=== PATIENT | male | born 1965 | race Caucasian/White ===

== ENCOUNTER 2022-05-07 19:04 | Emergency (ER) | payer OTHER, SELFPAY ==
[2022-05-07] VITALS (28 sets, daily range): BP systolic 128–155; BP diastolic 63–91; PULSE 79–88; RESP 16; TEMP 36.8–37.8; O2SAT 92–98; BMI 45.8
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
[2022-05-07 19:19] LABS: Basophils Absolute Auto 0.04 K/uL (0.00-0.30); Basophils Percent Auto 0.4 % (0.0-3.0); Eosinophils Absolute Auto 0.15 K/uL (0.00-0.50); Eosinophils Percent Auto 1.5 % (0.0-7.0); Hematocrit 49.3 % (37.0-53.0); Hemoglobin* 16.6 gm/dL (13.5-17.5); Immature Granulocytes Abs Auto 0.04 K/uL (0.00-0.30); Immature Granulocytes Pct Auto 0.4 %; Lymphocytes Absolute Auto 3.29 K/uL (0.90-2.90); Lymphocytes Percent Auto 33.2 % (20-44); Mean Corpuscular HGB Conc 34 gm/dL (32-36); Mean Corpuscular Hemoglobin 30 pg (26-34); Mean Corpuscular Volume 88 fL (80-100); Monocytes Percent Auto 8.8 % (0.0-11.0); Neutrophils Absolute Auto 5.53 K/uL (1.7-7.0); Neutrophils Percent Auto 55.7 % (42.0-72.0); Platelet Count* 196 K/uL (140-440); RDW Coefficient of Variation % 13.1 % (11.5-15.5); Red Blood Count 5.59 m/uL (4.30-5.90); White Blood Count* 9.92 K/uL (4.50-11.00)
[2022-05-07 19:22] LABS: Slide Review Reflex No
[2022-05-07 19:30] LABS: Albumin* 4.6 g/dL (3.3-5.0); Chloride* 103 mmol/L (96-114); Potassium* 3.6 mmol/L (3.6-5.1); Sodium* 138 mmol/L (135-149)
[2022-05-07 19:32] LABS: Creatinine* 0.7 mg/dL (0.5-1.5); Est. Creatinine Clearance* 100.06; Estimated Glomerular Filt Rate 107 ml/min
[2022-05-07 19:33] LABS: Alanine Aminotransferase* 35 U/L (4-50); Alkaline Phosphatase* 40 U/L (40-150); Aspartate Amino Transferase* 29 U/L (12-35); Bilirubin Total* 0.6 mg/dL (0.1-1.5); Blood Urea Nitrogen* 19 mg/dL (7-30); Calcium* 9.4 mg/dL (8.4-10.6); Carbon Dioxide* 26 mmol/L (20-32); Glucose* 112 mg/dL (60-115); Lipase* 103 U/L (23-300); Total Protein* 7.9 g/dL (6.0-8.3)
[2022-05-07] MEDS: 0.9 % SODIUM CHLORIDE 500 ML 500 ML IV (19:33)
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
[2022-05-07 19:37] LABS: Ethanol* < 0.01 % (0.01-0.03)
[2022-05-07 19:48] LABS: Troponin I* < 0.01 ng/mL (0.01-0.04)
[2022-05-07] MEDS: ACETAMINOPHEN 500 MG TABLET 1000 MG PO (20:18)
[2022-05-07] MEDS: OXYCODONE 5 MG TABLET 10 MG PO (20:19)
[2022-05-07] MEDS: CYCLOBENZAPRINE HCL 10 MG TABLET PO (20:19)
== END 2022-05-07 21:18 | disposition home or self-care (01) ==
PROVIDERS: Emergency Provider Family Medicine
DX: R10.12 Left upper quadrant pain (principal); R07.89 Other chest pain; V43.51XA Car driver injured in collision with sport utility vehicle in traffic accident, initial encounter
CPT/HCPCS: 36415; 71260; 74177; 80053; 82077; 83690; 84484; 85025; 93005; 94761; 99283; 99284; 99291; A0425; A0429; A9270; G0390; J7120; Q9967

== ENCOUNTER 2025-01-17 20:32 | Outpatient (CLI) | payer OTHER, SELFPAY | END 2025-01-17 20:33 | disposition home or self-care (01) | LOC: SLEEP 20:32 | PROVIDERS: Visit Provider Nurse Practitioner | DX: G47.33 Obstructive sleep apnea (adult) (pediatric) (principal); R09.02 Hypoxemia | CPT/HCPCS: 95811 ==